=== PATIENT | male | born 1960 | race Caucasian/White ===

== ENCOUNTER → 2018-09-08 | Outpatient (CLI) | payer OTHER | END | disposition home or self-care (01) | LOC: CFH 10:28 | PROVIDERS: ATTEND Nurse Practitioner Family | DX: J43.2 Centrilobular emphysema (principal); J98.4 Other disorders of lung; R91.1 Solitary pulmonary nodule; I25.10 Atherosclerotic heart disease of native coronary artery without angina pectoris | CPT/HCPCS: 71250 ==

== ENCOUNTER → 2019-04-18 | Outpatient (CLI) | payer OTHER | END | disposition home or self-care (01) | LOC: CFH 16:03 | PROVIDERS: ATTEND Nurse Practitioner Family | DX: J43.2 Centrilobular emphysema (principal); J98.4 Other disorders of lung | CPT/HCPCS: 71250 ==

== ENCOUNTER 2019-09-04 13:17 | Outpatient (CLI) | payer OTHER | END 2019-09-04 23:59 | disposition home or self-care (01) | LOC: CFH 13:17 | PROVIDERS: ATTEND Physician Assistant Medical | DX: N62 Hypertrophy of breast (principal); N64.4 Mastodynia; N63.10 Unspecified lump in the right breast, unspecified quadrant; Z85.118 Personal history of other malignant neoplasm of bronchus and lung | CPT/HCPCS: 76642; 77066 ==

== ENCOUNTER 2019-09-06 13:19 | Outpatient (CLI) | payer OTHER | END 2019-09-06 23:59 | disposition home or self-care (01) | LOC: CFH 13:19 | PROVIDERS: ATTEND Internal Medicine Endocrinology, Diabetes & Metabolism | DX: J43.9 Emphysema, unspecified (principal); I25.10 Atherosclerotic heart disease of native coronary artery without angina pectoris; M47.814 Spondylosis without myelopathy or radiculopathy, thoracic region; N62 Hypertrophy of breast; R91.1 Solitary pulmonary nodule | CPT/HCPCS: 71250; 75571 ==

== ENCOUNTER 2021-02-11 14:57 | Outpatient (CLI) | payer OTHER | END 2021-02-11 23:59 | disposition home or self-care (01) | LOC: CFH 14:57 | PROVIDERS: ATTEND Nurse Practitioner Family | DX: Z12.2 Encounter for screening for malignant neoplasm of respiratory organs (principal); J43.9 Emphysema, unspecified; R91.8 Other nonspecific abnormal finding of lung field; I25.10 Atherosclerotic heart disease of native coronary artery without angina pectoris; F17.210 Nicotine dependence, cigarettes, uncomplicated | CPT/HCPCS: 71271 ==